=== PATIENT | male | born 1985 | race Caucasian/White ===

== ENCOUNTER 2024-05-28 10:56 | Day surgery (SDC) | payer BC ==
[2024-05-28 09:15] LABS: Absolute Eosinophils 0.4 K/uL (0-0.5); Absolute Lymphocytes (CBC) 1.3 K/uL (0.7-4.9); Absolute Monocytes 0.3 K/uL (0.1-1.3); Absolute Neutrophil 1.6 K/uL (1.8-8.0); Basophils % 0.9 % (0-1.3); Eosinophils % 10.4 % (0-4.4); Hematocrit 38.3 % (39.6-49.0); Hemoglobin 12.4 g/dL (13.6-17.9); Lymphocytes % 34.6 % (15.3-44.8); MCH 24.7 pg (27.0-35.0); MCHC 32.4 g/dL (32.0-36.0); MCV 76.2 fL (80-100); MPV 7.7 fL (7.6-11.3); Monocytes % 9.1 % (3.3-12.3); Nucleated Red Blood Cells % 0.1 % (0-0); Platelets 264 thou/uL (152-406); RBC Red Blood Cell Count 5.03 M/uL (4.33-5.43); Red Cell Distribution Width 13.6 % (12.1-15.2)
[2024-05-28 09:27] LABS: Anion Gap 8.3 mEq/L (5.0-15.0); Potassium 4.3 mEq/L (3.5-5.1)
[2024-05-28] MEDS: Ringers Lactate 1,000 ML IV ONE (11:20)
[2024-05-28] MEDS ORDERED: propofoL 200 MG/20 ML VIAL IV ONE ×2 (12:09)
[2024-05-28] MEDS ORDERED: LIDOCAINE 1% MPF 2 ML AMPULE ONE (12:09)
[2024-05-28 16:12] VITALS: BP 107/64; TEMP 97.6; O2SAT 98
== END 2024-05-28 11:26 | disposition home or self-care (01) ==
LOC: OR 10:56
PROVIDERS: ATTEND Surgery
PROC: 0DBN8ZX Excision of Sigmoid Colon, Via Natural or Artificial Opening Endoscopic, Diagnostic (ICD-10-PCS; principal; 2024-05-28 12:45)
DX: K92.1 Melena (principal); K62.5 Hemorrhage of anus and rectum; K64.8 Other hemorrhoids; K63.5 Polyp of colon
CPT/HCPCS: 85025; 80048; 36415; 88305; 45380; J2704; J7120